=== PATIENT | female | born 1940 | race Caucasian/White ===

== ENCOUNTER → 2021-08-25 09:28 | Outpatient (BNVA) | payer MEDICARE, SELFPAY | PROVIDERS: Family Provider Family Medicine; PCP Family Medicine; Visit Provider Emergency Medicine | DX: N39.0 Urinary tract infection, site not specified (principal) | CPT/HCPCS: 81000; 87086 ==

== ENCOUNTER → 2022-07-02 10:31 | Outpatient (BNVA) | payer MEDICARE, SELFPAY | PROVIDERS: Family Provider Family Medicine; PCP Family Medicine; Visit Provider Surgery | DX: K21.9 Gastro-esophageal reflux disease without esophagitis (principal) | CPT/HCPCS: 99203 ==

== ENCOUNTER → 2022-07-13 09:12 | Outpatient (BNVA) | payer MEDICARE, SELFPAY | PROVIDERS: Family Provider Family Medicine; PCP Family Medicine; Visit Provider Nurse Practitioner Family | DX: N30.01 Acute cystitis with hematuria (principal) | CPT/HCPCS: 81000; 87077; 87086; 87184 ==

== ENCOUNTER 2022-08-05 07:08 | Day surgery (SDC) | payer MEDICARE, SELFPAY ==
[2022-07-30 10:05] VITALS: BMI 26.5
[2022-08-05 07:37] VITALS: BP 143/94; PULSE 80; RESP 18; TEMP 36.4; O2SAT 96
[2022-08-05] MEDS: sodium chloride 0.9% 1,000 ML 30 ML IV (07:42)
--- NOTE | 2022-08-05 08:31 | ANES.PREANE2 ---
Pre-Anesthetic Assessment Height/Weight: Height 1.78 m Weight 83.915 kg Temp Pulse Resp BP Pulse Ox 97.5 F L 80 18 143/94 96 08/05/22 07:37 08/05/22 07:37 08/05/22 07:37 08/05/22 07:37 08/05/22 07:37 Preop Diagnosis: GERD Operation Date: 08/05/22 09:00 Proposed Procedures p EGD 81286,K21.9(Not Applicable) - Jarrett Seo DO Familial anesthetic complications: none Was Beta Jocelyne taken within 24 hours: N/A Was Clonidine taken within 24 hours: N/A Last intake: Intake Last Liquid Date 08/04/22 Last Liquid Time 17:30 Last Solid Date 08/04/22 Last Solid Time 17:30 Last Intake: 17:30 Social No alcohol and No tobacco Exam alert, oriented x 3, clear to auscultation bilaterally and regular rate & rhythm Airway Submandibular: within normal limits Cervical ROM: within normal limits Mallampati: Class II Dentition: full Pulmonary None reported CV/HEM None reported None reported Hepatic None reported GI Gastroesophageal Reflux Disease Metabolic None reported Musc/skel None reported Neuropsych None reported Anesthetic Plan ASA status: 1 Anesthesia: MAC Risk of > 500 ml blood loss (7ml/kg in children): No Medications/Allergies Home Medications Medication Instructions Recorded Confirmed Last Taken Type loratadine 10 mg tablet (Claritin) 10 mg PO DAILY 09/10/20 08/05/22 08/04/22 History omeprazole 40 mg capsule,delayed 40 mg PO BID #60 caps 12/01/21 08/05/22 08/04/22 Rx release Allergies Allergy/AdvReac Type Severity Reaction Status Date / Time No Known Allergies Allergy Verified 08/05/22 07:31 Current Medications Generic Name Dose Route Start Last Admin Trade Name Freq PRN Reason Stop Dose Admin Sodium Chloride 1,000 mls @ 30 mls/hr 08/05/22 07:15 08/05/22 07:42 Sodium Chloride 0.9% IV 08/06/22 07:14 30 mls/hr .Q24H DYAN Administration PFSH Anesthesia Medical History Gastroesophageal reflux disease Surgical History H/O oral surgery History of esophagogastroduodenoscopy (EGD) x3 Hx of cholecystectomy Hx of colonoscopy with polypectomy Family History Family/Other Hypertension Other Stroke Denies family history of Diabetes Dementia Social History Smoking and tobacco status: never smoked Alcohol intake: never Adopted: No Caregiver/support person: No Female Reproductive History Spontaneous abortions: No Data Anesthesia Cardiac Studies: No Data to Display
--- NOTE | 2022-08-05 08:50 | PM.HP ---
Providers/Chief Complaint Primary Care Provider: Henna Lerner DO Chief Complaint: K21.9 History of Present Illness Juana Gregory is a 82 year old female here for EGD Medications/Allergies Home Medications Medication Instructions Recorded Confirmed Last Taken Type loratadine 10 mg tablet (Claritin) 10 mg PO DAILY 09/10/20 08/05/22 08/04/22 History omeprazole 40 mg capsule,delayed 40 mg PO BID #60 caps 12/01/21 08/05/22 08/04/22 Rx release Allergies Allergy/AdvReac Type Severity Reaction Status Date / Time No Known Allergies Allergy Verified 08/05/22 07:31 PFSH Acute PFSH: Medical History Gastroesophageal reflux disease Surgical History H/O oral surgery History of esophagogastroduodenoscopy (EGD) x3 Hx of cholecystectomy Hx of colonoscopy with polypectomy Family History Family/Other Hypertension Other Stroke Denies family history of Diabetes Dementia Social History Smoking and tobacco status: never smoked Alcohol intake: never Adopted: No Caregiver/support person: No Female Reproductive History: Spontaneous abortions: No Vitals/I&O/Wt Last Vital Signs Temp 97.5 F L 08/05/22 07:37 Pulse 80 08/05/22 07:37 Resp 18 08/05/22 07:37 BP 143/94 08/05/22 07:37 Pulse Ox 96 08/05/22 07:37 A&P Assessment and plan (1) Gastroesophageal reflux disease: Qualifiers: Esophagitis presence: esophagitis presence not specified Qualified Code(s): K21.9 - Gastro-esophageal reflux disease without esophagitis Plan EGD Attestations Medical Necessity Statement*: Home Coding Level of Care Code Acute Assistant Chief Nursing Officer for Chg Fwd Diagnoses Gastroesophageal reflux disease K21.9 Esophagitis presence: esophagitis presence not specified
[2022-08-05 09:05] VITALS: BP 129/72; PULSE 76; RESP 16; TEMP 36.4; O2SAT 95
[2022-08-05 09:20] VITALS: BP 140/83; PULSE 77; RESP 18; O2SAT 95
--- NOTE | 2022-08-05 13:50 | ANE.PACU2 ---
Inpatient post-anesthesia follow up: Airway intact: Yes Vital signs: Temperature 97.5 F Pulse Rate 77 Respiratory Rate 18 Blood Pressure 140/83 Pulse Oximetry 95 Oxygen Delivery Me thod Room Air Oxygen Flow Rate 4 Fraction of Inspir ed Oxygen Hydration adequate: Yes Nausea and vomiting: No Pain level: 1 Mental status: Baseline
== END 2022-08-05 09:35 | disposition home or self-care (01) ==
PROVIDERS: PCP Family Medicine; Visit Provider Surgery
PROC: 0DJ08ZZ Inspection of Upper Intestinal Tract, Via Natural or Artificial Opening Endoscopic (ICD-10-PCS; CPT 43235; principal; 2022-08-05 09:00)
DX: K21.9 Gastro-esophageal reflux disease without esophagitis (principal); K44.9 Diaphragmatic hernia without obstruction or gangrene; K22.70 Barrett's esophagus without dysplasia
CPT/HCPCS: 43239; 88305; J2704; J7030

== ENCOUNTER → 2022-08-27 16:25 | Outpatient (BNVA) | payer MEDICARE, SELFPAY | PROVIDERS: PCP Nurse Practitioner Family; Visit Provider Surgery | DX: Z09 Encounter for follow-up examination after completed treatment for conditions other than malignant neoplasm (principal); K21.9 Gastro-esophageal reflux disease without esophagitis; K22.70 Barrett's esophagus without dysplasia | CPT/HCPCS: 99212 ==

== ENCOUNTER → 2022-09-16 15:27 | Outpatient (BNVA) | payer MEDICARE, SELFPAY | PROVIDERS: PCP Nurse Practitioner Family; Visit Provider Nurse Practitioner Family | DX: R69 Illness, unspecified (principal); J32.0 Chronic maxillary sinusitis | CPT/HCPCS: 87400; 87426 ==

== ENCOUNTER → 2022-10-12 14:46 | Outpatient (BNVA) | payer MEDICARE, SELFPAY | PROVIDERS: PCP Nurse Practitioner Family; Visit Provider Nurse Practitioner Family | DX: R30.0 Dysuria (principal); N30.00 Acute cystitis without hematuria; J32.1 Chronic frontal sinusitis | CPT/HCPCS: 81000; 87077; 87086; 87184 ==

== ENCOUNTER → 2022-12-10 11:03 | Outpatient (BNVA) | payer MEDICARE, SELFPAY | PROVIDERS: PCP Nurse Practitioner Family; Visit Provider Family Medicine | DX: K21.9 Gastro-esophageal reflux disease without esophagitis (principal); I10 Essential (primary) hypertension; Z13.220 Encounter for screening for lipoid disorders; Z13.6 Encounter for screening for cardiovascular disorders; K22.70 Barrett's esophagus without dysplasia; Z13.1 Encounter for screening for diabetes mellitus; M79.2 Neuralgia and neuritis, unspecified; Z76.89 Persons encountering health services in other specified circumstances | CPT/HCPCS: 80053; 80061 ==

== ENCOUNTER → 2023-02-06 09:24 | Outpatient (BNVA) | payer MEDICARE, SELFPAY | PROVIDERS: PCP Family Medicine; Visit Provider Family Medicine | DX: R39.9 Unspecified symptoms and signs involving the genitourinary system (principal); I10 Essential (primary) hypertension; J30.1 Allergic rhinitis due to pollen; N30.01 Acute cystitis with hematuria | CPT/HCPCS: 81000 ==

== ENCOUNTER → 2023-03-15 09:21 | Outpatient (BNVA) | payer MEDICARE, SELFPAY | PROVIDERS: PCP Family Medicine; Visit Provider Nurse Practitioner Family | DX: N39.0 Urinary tract infection, site not specified (principal); H69.93 Unspecified Eustachian tube disorder, bilateral; J32.0 Chronic maxillary sinusitis | CPT/HCPCS: 81000; 87077; 87086; 87184 ==

== ENCOUNTER → 2023-12-08 09:19 | Outpatient (BNVA) | payer MEDICARE, SELFPAY | PROVIDERS: PCP Family Medicine; Visit Provider Family Medicine | DX: I10 Essential (primary) hypertension (principal); K21.9 Gastro-esophageal reflux disease without esophagitis; J30.1 Allergic rhinitis due to pollen; E78.2 Mixed hyperlipidemia; K12.1 Other forms of stomatitis; K12.30 Oral mucositis (ulcerative), unspecified | CPT/HCPCS: 80053; 80061 ==

== ENCOUNTER → 2023-12-26 11:05 | Outpatient (BNVA) | payer MEDICARE, SELFPAY | PROVIDERS: PCP Family Medicine; Visit Provider Emergency Medicine | DX: R30.0 Dysuria (principal); N39.0 Urinary tract infection, site not specified | CPT/HCPCS: 81000; 87086 ==

== ENCOUNTER → 2024-12-06 08:31 | Outpatient (BNVA) | payer MEDICARE, SELFPAY | PROVIDERS: PCP Family Medicine; Visit Provider Family Medicine | DX: I10 Essential (primary) hypertension (principal); E78.2 Mixed hyperlipidemia | CPT/HCPCS: 80048; 80061 ==